=== PATIENT | male | born 1950 | race Caucasian/White ===

== ENCOUNTER 2016-06-12 07:17 | Day surgery (SDC) | payer BC ==
[2016-06-05 09:53] LABS: BASOPHILS 0.2 %; BASOPHILS ABSOLUTE 0.01 10/3/uL (0.0-0.16); EOSINOPHILS 1.2 %; EOSINOPHILS ABSOLUTE 0.06 10/3/uL (0.0-0.53); HEMATOCRIT 42.2 % (40.0-51.0); HEMOGLOBIN 14.5 g/dL (13.6-17.8); IMMATURE GRANULOCYTES 0.4 %; IMMATURE GRANULOCYTES ABSOLUTE 0.02 10/3/uL (0.0-0.11); LYMPHOCYTES 38.5 %; LYMPHOCYTES ABSOLUTE 1.97 10/3/uL (0.67-4.30); MEAN CORPUS HGB CONC 34.4 g/dL (32.0-36.0); MEAN CORPUSCULAR HEMOGLOB 31.9 pg (26.0-34.0); MEAN CORPUSCULAR VOLUME 92.7 fL (80-100); MEAN PLATELET VOLUME 10.3 fL (9.2-13.0); MONOCYTES 7.2 %; MONOCYTES ABSOLUTE 0.37 10/3/uL (0.21-1.20); NEUTROPHILS 52.5 %; NEUTROPHILS ABSOLUTE 2.69 10/3/uL (2.02-8.40); PLATELET COUNT 143 10/3/uL (150-400); RBC DISTRIBUTION WIDTH 13.9 % (12.0-16.0); RED CELL COUNT 4.55 10/6/uL (4.7-6.1); WHITE BLOOD CELLS 5.1 10/3/uL (4.5-10.5)
[2016-06-05 09:54] LABS: MANUAL DIFF NO %
[2016-06-05 10:01] LABS: PROTIME (NOT ORD) 12.9 SEC (12.0-14.5)
[2016-06-05 10:02] LABS: PARTIAL THROMBO TIME 31.4 SEC (22.5-37.2)
[2016-06-05 10:05] LABS: BUN (BLOOD UREA NITROGEN) 17 MG/DL (6-23); CALCIUM, SERUM 9.1 MG/DL (8.5-10.4); CHLORIDE, SERUM 103 MMOL/L (96-112); CO2 (CARBON DIOXIDE) 27 MMOL/L (24-34); GFR AFRICAN AMERICAN 73 ML/MIN (>=60); GFR NON AFRICAN AMERICAN 63 ML/MIN (>=60); GLUCOSE, SERUM 111 MG/DL (60-99); POTASSIUM, SERUM 4.4 MMOL/L (3.5-5.3); SODIUM, SERUM 139 MMOL/L (135-148)
--- NOTE | ~2016-06-12 | OP ---
Record Of Operation [facility] [address] [place]. [address] NAME: ELENI LIZAMA : 50 STATUS : REG [facility]#: [id number] AGE: 66 ADM/REG DATE : 06/12/16 MR#: [id number] REPORT SERV DATE: 06/12/16 DICTATED BY: [place] DATE: 06/12/16 REPORT STATUS : Draft TRANSCRIBED BY: MODL DATE: 06/12/16 DATE OF PROCEDURE: 06/12/2016 PREOPERATIVE DIAGNOSIS: Prostatic asymmetry on rectal exam. POSTOPERATIVE DIAGNOSIS: Prostatic asymmetry on rectal exam. PROCEDURE PERFORMED: Transrectal ultrasound-guided biopsies of the prostate. SURGEON: [place] M.D. ANESTHESIA: IV sedation. HISTORY: This is a 66-year-old white male, with a palpable abnormality of the prostate on rectal exam. His right lateral prostatic lobe is somewhat indurated and distinctly larger than the left. He has a history of a previous negative transrectal ultrasound-guided biopsy of the prostate in 2010. We are planning transrectal ultrasound-guided biopsies of the prostate. Risks of infection, bleeding, retention etc. were reviewed. PROCEDURE IN DETAIL: The patient was taken to the operating room and was placed in a lateral position on the stretcher bed. He underwent IV sedation. A brief rectal exam again revealed an asymmetrical prostate with the right lobe larger diffusely on the left. The transrectal ultrasound probe was gently introduced per rectum and the prostate was imaged with excellent image quality. Clearly, the right lobe was diffusely larger than the left. There was a mild diffuse inhomogeneity of the prostate. There were a few scattered intraprostatic calcifications. The prostate volume measured 25 mL. We then took nine biopsies of the right lobe of the prostate, Spanning the base, mid lobe, and apical region, and we took six biopsies of the left side of the prostate in a similar fashion under ultrasound guidance. He tolerated the procedure very well. There were no complications and at the conclusion of the surgery, he was taken to recovery in stable condition. LEN/MYLA [place] M.D. / [id number] CC: Digna Rapp M.D.
[~2016-06-12 07:17] MED LIST: ASAB PO; BYSTOLIC5 MG PO; MEVACOR40 MG PO; MULTIVIT/MIN PO; PREV15 PO; PRIN10 PO; RYTHMOL SR325 MG PO; TIKOSYN 250 M250 MCG PO; VITAMIN D31000 UNIT PO
== END 2016-06-12 16:12 | disposition home or self-care (01) ==
LOC: SDC 07:17
PROVIDERS: Urology
PROC: BV49ZZZ Ultrasonography of Prostate and Seminal Vesicles (ICD-10-PCS; 2016-06-12)
PROC: 0VB07ZX Excision of Prostate, Via Natural or Artificial Opening, Diagnostic (ICD-10-PCS; principal; 2016-06-12 08:30)
DX: N42.89 Other specified disorders of prostate (principal); M19.90 Unspecified osteoarthritis, unspecified site; L40.9 Psoriasis, unspecified; Z95.0 Presence of cardiac pacemaker; Z79.82 Long term (current) use of aspirin; Z79.899 Other long term (current) drug therapy; Z87.74 Personal history of (corrected) congenital malformations of heart and circulatory system; Z86.718 Personal history of other venous thrombosis and embolism; Z98.890 Other specified postprocedural states; Z90.49 Acquired absence of other specified parts of digestive tract
CPT/HCPCS: 71020; 76872; 76942; 80048; 85025; 85610; 85730; 88305; 93005